=== PATIENT | male | born 1975 | race Caucasian/White ===

== ENCOUNTER 2017-05-05 22:50 | Emergency (ER) | payer OTHER ==
[~2017-05-05 22:50] MED LIST: PANT40TA3 PO
[2017-05-06] MEDS ORDERED: KETOROLAC 30 MG INJ ONE (02:23)
[2017-05-06] MEDS ORDERED: ONDANSETRON 4 MG INJ ONE (02:23)
[2017-05-06 07:13] LABS: ALANINE AMINOTRANSFERASE 123 IU/L (13-69); ALBUMIN 4.2 g/dl (3.3-4.9); ALBUMIN/GLOBULIN RATIO 0.93; ALKALINE PHOSPHATASE 561 IU/L (42-121); ANION GAP 22 (8-16); ASPARTATE AMINO TRANSFERASE 192 IU/L (15-46); BILIRUBIN,INDIRECT 1.3 mg/dl (0-1.1); BILIRUBIN,TOTAL 1.3 mg/dl (0.2-1.3); BLOOD UREA NITROGEN 10 mg/dl (7-20); CALCIUM 9.8 mg/dl (8.4-10.2); CARBON DIOXIDE 25 mmol/L (21-31); CHLORIDE 101 mmol/L (97-110); CREATININE 1.25 mg/dl (0.61-1.24); GLUCOSE 155 mg/dl (70-220); POTASSIUM 4.2 mmol/L (3.5-5.1); SODIUM 144 mmol/L (135-144); TOTAL PROTEIN 8.7 g/dl (6.1-8.1)
[2017-05-06 07:14] LABS: TROPONIN-I < 0.012 ng/ml (0.00-0.12)
[2017-05-06 07:18] LABS: INR 1.02; PROTIME 13.4 Sec (12.2-14.2)
[2017-05-06 07:19] LABS: PARTIAL THROMBOPLASTIN TIME 30.8 Sec (25.0-35.0)
[2017-05-06 07:47] LABS: ADD UMIC NO; UR AMORPHOUS CRYSTAL FEW /HPF (NONE SEEN); UR ASCORBIC ACID 20 mg/dL (NEGATIVE); UR BILIRUBIN (Dip) NEGATIVE (NEGATIVE); UR BLOOD (Dip) NEGATIVE (NEGATIVE); UR CLARITY SLIGHTLY CLOUDY (CLEAR); UR COLOR AMBER (YELLOW); UR GLUCOSE (Dip) NEGATIVE (NEGATIVE); UR KETONES (Dip) NEGATIVE (NEGATIVE); UR LEUKOCYTE ESTERASE (Dip) NEGATIVE Leu/ul (NEGATIVE); UR MUCUS MANY /HPF (NONE SEEN); UR NITRITE (Dip) NEGATIVE (NEGATIVE); UR RBC 1 /HPF (0-5); UR SPECIFIC GRAVITY (Dip) 1.023 (1.003-1.030); UR TOTAL PROTEIN (Dip) NEGATIVE (NEGATIVE); UR UROBILINOGEN (Dip) 1+ mg/dL (NEGATIVE)
--- NOTE | 2017-05-06 08:38 | RADRPT ---
PROCEDURE: CT ABDOMEN/PELVIS WITHOUT CONTRAST CLINICAL INDICATION: 42-year-old male with right upper quadrant pain. TECHNIQUE: The study was performed utilizing a GE [employer] VCT 64-slice CT scanner. Direct axia l sections were obtained through the abdomen and pelvis without the use of intravenous contrast mate rial. Sagittal and coronal reformations were obtained. One or more of the following dose reduction t echniques were utilized: automated exposure control, adjustment of the mA and/or kV according to pat ient's size or use of iterative reconstruction technique. The images were reviewed on a PACS workst atNokter. CTD/vol = 14.4 mGy; Total Exam DLP = 901.3 mGy-cm. COMPARISON: None. FINDINGS: There is mild bibasilar subsegmental atelectasis and/or scarring. There is no evidence for signific ant pleural effusion. There is minimal free fluid surrounding the right lobe of the liver. The sydnee er is markedly enlarged and heterogeneous measuring approximately 27.7 cm in maximal length. There are extensive diffuse ovoid hypodense foci scattered throughout the liver with the largest in the ri ght lobe measuring approximately 9 point a by 7.0 x 7.2 cm in axial image 3-92. These are most sugg estive of metastatic disease. No intrahepatic nor extrahepatic biliary ductal dilatation is seen. T he gallbladder is not visualized. The pancreas is without areas of abnormal attenuation although the pancreatic head is not well delineated. The spleen is identified and has a normal size without abn ormal density. The adrenal glands are unremarkable. The kidneys are without abnormal density. No hyd roureteronephrosis nor nephroureterolithiasis is evident. The urinary bladder contains urine. There is mild retained stool within the ascending colon without obstruction. The appendix is not clearly visualized however there is no definite periappendiceal inflammatory changes. There is minimal pelvi c free fluid. The aortoiliac vessels are without aneurysmal dilatation. The osseous structures are i ntact. IMPRESSION: 1. Markedly enlarged heterogeneous liver with multiple hypodense masses most suggestive of metastat ic disease. 2. Minimal free fluid surrounding the right lobe of the liver as well as within the pelvis. 3. The gallbladder is not well visualized. Clinical correlation is necessary. .Ky Smith MD, MD Date Time Electronically viewed and signed by .Ky Smith MD, MD on 05/06/2017 03:51 .M/
[2017-05-06 09:12] LABS: BASOPHIL # 0.1 10^3/ul (0.0-0.1); BASOPHILS % 0.7 % (0.0-2.0); HEMOGLOBIN 13.7 g/dl (14.0-18.0); LYMPHOCYTES # 1.9 10^3/ul (0.8-2.9); LYMPHOCYTES % 13.7 % (15.0-51.0); MEAN CORPUSCULAR HEMOGLOBIN 30.6 pg (29.0-33.0); MEAN CORPUSCULAR HGB CONC 31.1 g/dl (32.0-37.0); MEAN CORPUSCULAR VOLUME 98.2 fl (82.0-101.0); MEAN PLATELET VOLUME 9.7 fl (7.4-10.4); MONOCYTES % 7.4 % (0.0-11.0); NEUTROPHILS % 77.6 % (39.0-77.0); PLATELET COUNT 273 10^3/UL (140-415); RED BLOOD COUNT 4.48 10^6/ul (4.70-6.10); RED CELL DISTRIBUTION WIDTH 16.2 % (11.5-14.5); WHITE BLOOD COUNT 13.7 10^3/ul (4.8-10.8)
--- NOTE | 2017-05-08 16:01 | RADRPT ---
PROCEDURE: ULTRASOUND LIMITED ABDOMEN CLINICAL INDICATION: 42-year-old male with right upper quadrant pain. TECHNIQUE: Multiple sonographic of the right upper quadrant of the abdomen were obtained. The imag es were reviewed on a PACS workstation. COMPARISON: CT abdomen/pelvis May 06, 2017. FINDINGS: The pancreas is not well visualized secondary to overlying bowel gas. The liver enlarged and heterogeneous measuring approximately 23.4 cm in maximal length. There are i nnumerable ovoid foci of abnormal echogenicity. The largest measures approximately 11.2 x 5.6 cm. No evidence of intrahepatic biliary ductal dilatation is seen. The portal and hepatic veins are unre markable. The gallbladder is not visualized. No pericholecystic fluid is seen. The common bile duct measures 4 .3 mm and is not dilated. The right kidney displays normal echogenicity. The right kidney measures 11.1 cm in maximal length. No caliectasis or hydronephrosis is seen. No free fluid is seen. IMPRESSION: 1. Enlarged heterogeneous liver with multiple ovoid foci of abnormal echogenicity most suggestive o f metastatic disease. 2. The gallbladder and pancreas were not visualized. .Ky Smith MD, MD Date Time Electronically viewed and signed by .Ky Smith MD, MD on 05/08/2017 16:00 .M/
--- NOTE | 2017-05-08 18:58 | ERD ---
ER Documentation Chief Complaint Date/Time DATE: 05/08/17 TIME: 18:52 Chief Complaint HPI This patient is a 42-year-old male who is mostly nonverbal at baseline with past medical history of developmental delays presenting to the emergency department by his sister who is his full-time caregiver with complaints of abdominal pain. Pain is constant and worsening according to the sister. The patient has had no nausea, vomiting, diarrhea. The sister also states the patient has a rigid abdomen. No dizziness, syncope, diarrhea, or other symptoms reported. ROS All systems reviewed and are negative except as per history of present illness. Medications Home Meds Active Scripts Pantoprazole* (Protonix*) 40 Mg Tablet.dr, 40 MG PO BID for 28 Days, TAB Prov:MAYRA CHO MD 10/07/15 Reported Medications [None] No Conflict Check 04/12/11 Allergies Allergies: Coded Allergies: No Known Allergies (Verified Allergy, Unknown, 10/04/15) PMhx/Soc History of Surgery: No Anesthesia Reaction: No Hx Neurological Disorder: No Hx Respiratory Disorders: No Hx Cardiac Disorders: No Hx Psychiatric Problems: No Hx Alcohol Use: No Hx Substance Use: No Hx Tobacco Use: No Physical Exam Physical Exam Const:Nontoxic, well-appearing, developmental delays noted. Head: Atraumatic Eyes: Normal Conjunctiva ENT: Normal External Ears, Nose and Mouth. Neck: Full range of motion..~ No meningismus. Resp: Clear to auscultation bilaterally Cardio: Regular rate and rhythm, no murmurs Abd: Distended, hard abdomen with diffuse mild tenderness but no rebound tenderness or guarding noted. Normal bowel sounds Skin: No petechiae or rashes Back: No midline or flank tenderness Ext: No cyanosis, or edema Neur: Awake and alert Psych: Normal Mood and Affect Result Diagram: 05/06/17 0159 05/06/17158 Results 24 hrs Laboratory Tests Test 05/06/17 01:59 05/06/17 07:09 White Blood Count 13.710^3/ul Red Blood Count 4.4810^6/ul Hemoglobin 13.7g/dl Hematocrit 44.0% Mean Corpuscular Volume 98.2fl Mean Corpuscular Hemoglobin 30.6pg Mean Corpuscular Hemoglobin Concent 31.1g/dl Red Cell Distribution Width 16.2% Platelet Count 50232^3/UL Mean Platelet Volume 9.7fl Neutrophils % 77.6% Lymphocytes % 13.7% Monocytes % 7.4% Eosinophils % 0.0% Basophils % 0.7% Nucleated Red Blood Cells % 0.0/100WBC Neutrophils # (Manual) 10.610^3/ul Lymphocytes # 1.910^3/ul Monocytes # 1.010^3/ul Eosinophils # 0.010^3/ul Basophils # 0.110^3/ul Nucleated Red Blood Cells # 0.010^3/ul Prothrombin Time 13.4Sec Prothrombin Time Ratio 1.0 INR International Normalized Ratio 1.02 Activated Partial Thromboplast Time 30.8Sec Sodium Level 144mmol/L Potassium Level 4.2mmol/L Chloride Level 101mmol/L Carbon Dioxide Level 25mmol/L Anion Gap 22 Blood Urea Nitrogen 10mg/dl Creatinine 1.25mg/dl Glucose Level 155mg/dl Calcium Level 9.8mg/dl Total Bilirubin 1.3mg/dl Direct Bilirubin 0.00mg/dl Indirect Bilirubin 1.3mg/dl Aspartate Amino Transf (AST/SGOT) 192IU/L Alanine Aminotransferase (ALT/SGPT) 123IU/L Alkaline Phosphatase 561IU/L Troponin I < 0.012ng/ml Total Protein 8.7g/dl Albumin 4.2g/dl Globulin 4.50g/dl Albumin/Globulin Ratio 0.93 Urine Color MOSES Urine Clarity SLIGHTLY CLOUDY Urine pH 5.0 Urine Specific [place] 1.023 Urine Ketones NEGATIVEmg/dL Urine Nitrite NEGATIVEmg/dL Urine Bilirubin NEGATIVEmg/dL Urine Urobilinogen 1+mg/dL Urine Leukocyte Esterase NEGATIVELeu/ul Urine Microscopic RBC 1/HPF Urine Microscopic WBC 0/HPF Urine Amorphous Crystals FEW/HPF Urine Mucus MANY/HPF Urine Hemoglobin NEGATIVEmg/dL Urine Glucose NEGATIVEmg/dL Urine Total Protein NEGATIVEmg/dl Current Medications Medications (Trade) Dose Ordered Sig/Taylor Route PRN Reason Start Time Stop Time Status Last Admin Dose Admin Ketorolac Tromethamine (Toradol) 30 mg STK-MED ONCE .ROUTE 05/06/17 02:23 05/06/17 08:59 DC Ondansetron HCl (Zofran Inj) 4 mg STK-MED ONCE .ROUTE 05/06/17 02:23 05/06/17 09:15 DC Procedures/MDM 42-year-old male presenting to the emergency department with complaints of abdominal pain. Examination does show some distention, with rigid abdomen and diffuse tenderness to palpation. CBC was remarkable for a white count of 13.7. The patient was slightly anemic at 13.7. White count may be reactive to metastatic disease. Alkaline phosphatase is also elevated at 561. This is most likely consistent with metastatic disease. AST and ALT were also slightly elevated. Urinalysis was unremarkable. EKG: Interpreted by ED physician, Dr. Adrian Hurtado Rate/Rhythm: Normal sinus rhythm with a rate of 87 bpm. QRS, ST, T-waves: [No changes consistent w/ acute ischemia] Impression: [No evidence of ischemia or arrhythmia] Radiology: PROCEDURE: CT ABDOMEN/PELVIS WITHOUT CONTRAST CLINICAL INDICATION: 42-year-old male with right upper quadrant pain. TECHNIQUE: The study was performed utilizing a [employer] VCT 64-slice CT scanner. Direct axial sections were obtained through the abdomen and pelvis without the use of intravenous contrast material. Sagittal and coronal reformations were obtained. One or more of the following dose reduction techniques were utilized: automated exposure control, adjustment of the mA and/ or kV according to patient's size or use of iterative reconstruction technique. The images were reviewed on a PACS workstation. CTD/vol = 14.4 mGy; Total Exam DLP = 901.3 mGy-cm. COMPARISON: None. FINDINGS: There is mild bibasilar subsegmental atelectasis and/or scarring. There is no evidence for significant pleural effusion. There is minimal free fluid surrounding the right lobe of the liver. The liver is markedly enlarged and heterogeneous measuring approximately 27.7 cm in maximal length. There are extensive diffuse ovoid hypodense foci scattered throughout the liver with the largest in the right lobe measuring approximately 9 point a by 7.0 x 7.2 cm in axial image 3-92. These are most suggestive of metastatic disease. No intrahepatic nor extrahepatic biliary ductal dilatation is seen. The gallbladder is not visualized. The pancreas is without areas of abnormal attenuation although the pancreatic head is not well delineated. The spleen is identified and has a normal size without abnormal density. The adrenal glands are unremarkable. The kidneys are without abnormal density. No hydroureteronephrosis nor nephroureterolithiasis is evident. The urinary bladder contains urine. There is mild retained stool within the ascending colon without obstruction. The appendix is not clearly visualized however there is no definite periappendiceal inflammatory changes. There is minimal pelvic free fluid. The aortoiliac vessels are without aneurysmal dilatation. The osseous structures are intact. IMPRESSION: 1. Markedly enlarged heterogeneous liver with multiple hypodense masses most suggestive of metastatic disease. 2. Minimal free fluid surrounding the right lobe of the liver as well as within the pelvis. 3. The gallbladder is not well visualized. Clinical correlation is necessary. .Ky Smith MD, MD Date Time Electronically viewed and signed by .Ky Smith MD, on 05/06/2017 03:51 The patient's diagnosis is abdominal pain of unclear etiology, but may be secondary to his heterogeneous liver, most likely suggestive of metastatic disease. All results were shared with the sister and close follow-up with the primary care physician was advised. The primary care physician may further referred the patient to appropriate specialists including but not limited to GI and hematology/oncology. The sister understood the discharge plan and diagnosis. Her questions and concerns were addressed. The patient is to return immediately for any new or worsening symptoms. No life-threatening pathology was identified at time of discharge. Departure Diagnosis: Primary Impression: Abdominal pain Abdominal location: generalized Qualified Code: R10.84 - Generalized abdominal pain Condition: DEBBIE Jon PA-C May 08, 2017 18:58
== END 2017-05-06 04:50 | disposition home or self-care (01) ==
LOC: FTE 22:50
DX: R10.84 Generalized abdominal pain (principal)
CPT/HCPCS: 74176; 76705; 80053; 81001; 84484; 85025; 85610; 85730; J1885; J2405; Z7502; 81003